=== PATIENT | female | born 1970 | race Two or more races ===

== ENCOUNTER 2023-03-13 08:23 | Emergency (ER) | payer MEDICAID ==
[~2023-03-13] VITALS: Ht 165.1 cm; Wt 90.1 kg
[2023-03-13 08:35] VITALS: BP 131/74; PULSE 78; RESP 16; TEMP 97.7; O2SAT 97
[2023-03-13] MEDS ORDERED: IBUP-1454 PO (11:33)
== END 2023-03-13 12:04 | disposition home or self-care (01) ==
LOC: ER 08:23
DX: M23.92 Unspecified internal derangement of left knee (principal); Z88.6 Allergy status to analgesic agent
CPT/HCPCS: 73562